=== PATIENT | male | born 1990 | race Two or more races ===

== ENCOUNTER 2025-05-15 12:34 | Emergency (ER) | payer MEDICAID, SELFPAY ==
[2025-05-15 12:56] VITALS: BP 146/103; PULSE 74; RESP 20; TEMP 36.4; O2SAT 99; BMI 30.7
--- NOTE | 2025-05-15 13:06 | XR_ITS ---
Study: Abdomen pelvis CT. Indication: Lower abdominal pain for 3 days. TECHNIQUE: 3 mm slice thickness axial with 60 mL of Isovue-300. 3 mm sagittal and coronal reformats. Radiation dose 583 mGy centimeters with dose reduction technique. 1766 images at 15 May 2025. FINDINGS: The patient was imaged from the base of the heart to the subtrochanteric region. The heart, lung bases and pleural spaces are normal. The gallbladder, kidneys, ureters and urinary bladder are free from calculi. There is no hydronephrosis, ascites or free abdominal air. Parenchyma of the liver, pancreas, spleen, right kidney, adrenal glands and periaortic lymph node region is normal. The left kidney is remarkable for a 3.2 cm diameter exophytic focus of soft tissue with a cortical medullary underlay minute of cystic characteristic extending from the inferolateral aspect of the kidney. The contrast infusion was not concentrated and rapid enough to demonstrate highlighting of this lesion. The stomach, duodenum, small bowel, appendix and colon are normal. The urinary bladder is free from masses. The prostate is enlarged to 5.5 x 3.4 cm transaxial by 4.2 cm cephalocaudad. It there is no definite pelvic sidewall lymphadenopathy. Vertebral alignment is normal. There is no fracture or focal lesion. The aorta and inferior vena cava are normal in caliber. There is no aortic plaque burden. IMPRESSION: 1. Prostate enlargement. 2. Left renal mass with combined solid and cystic characteristics. This is worrisome for a renal cell carcinoma and should be further evaluated with ultrasound or MRI.
--- NOTE | 2025-05-15 13:07 | EDNOTE_ITS ---
ED Abdominal Pain RME/HPI General Chief Complaint: Abdominal Pain Stated complaint: LOWER ABD PAIN WITH NAUSEA, VOMITING X2 Time seen by provider: 05/15/25 13:05 Arrival date/time: 05/15/25 12:34 RME / HPI RME / HPI narrative: See [facility] for Dr. Nuñez's HPI documentation. Related Data Previous Rx's ?Medication ?Instructions ?Recorded ibuprofen 800 mg tablet 800 mg PO TID PRN pain #30 t abs 11/13/23 acetaminophen 300 mg-codeine 30 mg 2 tab PO Q8H PRN pa in #20 tabs 05/15/25 tablet ondansetron 4 mg disintegrating 4 mg PO TID PRN nausea and 05/15/25 tablet vomiting 30 days #10 tabs Allergies Allergy/AdvReac Type Severity Reaction Status Date / Time No Known Allergies Allergy Verified 05/15/25 12:36 Review of Systems Review of Systems Systems Reviewed: All systems reviewed, normal except as documented Past Medical History Past Medical History CARDIAC: Negative Cardiac Disorders or Congestive Heart Failure RESPIRATORY: Negative Chronic Obstructive Pulmonary Disease (COPD) or Asthma GENITOURINARY: Negative Renal Disease ENDOCRINE: Negative Diabetes Mellitus Type 1 or Diabetes Mellitus Type 2 HEMATOLOGIC: Negative Sickle Cell Disease Social History SMOKING STATUS: Never smoker ED Exam Narrative Physical exam: See [facility] for Dr. Nuñez's physical exam documentation. Course Quality Measures none Orders Category Date Time Status CT Screening NOW Care 05/15/25 13:06 Active Saline [Insert IV] NOW Care 05/15/25 13:[address] abdomen pelvis w con Stat Exams 05/15/25 13:06 Completed Alcohol, Blood Medical Stat Lab 05/15/25 13:16 Completed Amylase Stat Lab 05/15/25 13:16 Completed Bilirubin,Direct Stat Lab 05/15/25 13:16 Completed CBC Stat Lab 05/15/25 13:16 Completed CMP [Comprehensive Metabolic Panel] Stat Lab 05/15/25 13:16 Completed Drug Screen,Urine Stat Lab 05/15/25 14:17 Completed Lipase Stat Lab 05/15/25 13:16 Completed Magnesium Stat Lab 05/15/25 13:16 Completed UA, C/S IF [Urinalysis, C/S if Indicated] Stat Lab 05/15/25 14:17 Completed HYDROmorphone INJ [Dilaudid Inj] Med 05/15/25 13:06 Discontinued 2 mg IVP X1 ONE Ketorolac Inj [Toradol Inj] Med 05/15/25 13:06 Discontinued 30 mg IVP X1 ONE Ondansetron Inj [Zofran Inj] Med 05/15/25 13:06 Discontinued 4 mg IVP X1 ONE Sodium Chloride 0.9% 1000 ml [Ns] 1,000 ml Med 05/15/25 13:06 Discontinued IV 999 mls/hr Sodium Chloride 0.9% 1000 ml [Ns] 1,000 ml Med 05/15/25 15:03 Discontinued IV 999 mls/hr Vital Signs Vital signs: Vital Signs Temperature 97.6 F 05/15/25 12:56 Pulse Rate 74 05/15/25 12:56 Respiratory Rate 20 05/15/25 12:56 Blood Pressure 146/103 H 05/15/25 12:56 Pulse Oximetry (%) 99 05/15/25 12:56 Oxygen Delivery Method Room Air 05/15/25 12:56 Pulse ox is 99% on room air which is adequate. Abdominal Pain MDM MDM Narrative MDM Narrative:: This section includes all my notes and documentations, including HPI, PE, and ED course. Mickey Nuñez MD HPI: 35-year-old male here with severe lower abdominal pain beginning yesterday. ROS: All negative except as documented in HPI. Physical Exam: General: Alert and oriented. No acute distress when remaining still. Eyes: Conjunctivae and lids clear. ENT: No nasal congestion. Neck: Supple. Heart: RRR. Lungs: No respiratory distress. Good air movement. No rhonchi, wheezing, rales. Abdomen: Soft and nontender. Normal bowel sounds. No distension. No rebound or guarding. Back: No CVA tenderness. Skin: Warm and dry. Neuro: Alert and oriented X3. I reviewed all diagnostic test results: My review of the abdomen/pelvis CT report is: Prostate enlargement, left renal mass. Blood tests and urine tests: CBC and CMP are unremarkable, lipase 80, amylase 124. UA positive for 3+ blood, 77 RBC. UDS positive for opiates. At this point, diagnoses include: Lower abdominal pain Left kidney mass Enlarged prostate Hematuria Treatment here included: Zofran 4 mg IV Dilaudid 2mg IV Toradol 30 mg IV IV fluids Significant improvement after pain medications. Recommended following up with PCP in 2 days. Based on my best medical judgment, made decision no further evaluation or treatment indicated at this time. Patient understands and agrees to the discharge instructions customized and printed, see below. Instrucciones de marisol del Dr. Nuñez impresas para usted: 1. Tras rosi evaluaci?n exhaustiva, no hay ninguna emergencia. Por ejemplo, apendicitis que requiera cirug?a urgente. 2. 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 [place] Tylenol con code?na para el dolor intenso. 4. Para rosi buena hidrataci?n, aumente la ingesta de l?quidos por v?a oral y mantenga la orina ariana. Si est? oscura o amarilla, aumente la ingesta de l?quidos. [place] Zofran para las n?useas y los v?mitos. 5. Para determinar las causas y los tratamientos de juhi afecciones, debe consultar con un m?dico particular fuera de la barak de emergencias el 05/17/2025. Solicite revisar todos los resultados de las pruebas y los informes radiol?gicos oficiales para asegurarse de recibir todo el seguimiento y la monitorizaci?n necesarios. Solicite ayuda para obtener m?s atenci?n e investigaciones, incluyendo derivaciones a especialistas, maite ur?logo, gastroenter?logo y nefr?logo (especialista en ri?ones). 6. Busque atenci?n m?dica inmediata si juhi s?ntomas empeoran o si tiene alguna inquietud. Discharge Instructions from Dr. Nuñez printed for you: 1. After extensive evaluation, there is no emergency. Such as appendicitis needing urgent surgery. 2. But you have significant conditions, including: Left kidney mass Enlarged prostate Hematuria (blood in your urine) 3. Tylenol with codeine for severe pain. 4. For good hydration, increase oral fluid and maintain clear urine. If dark or yellow, increase oral fluid. Zofran for nausea/vomiting. 5. To find the causes and treatments of your conditions, you need to see a private doctor outside the ER on 05/17/2025. Ask to review all test results and official radiology reports, to make sure you receive all necessary follow-ups and monitoring. Ask for help with more care and investigation, including referrals to see specialists, such Urologist and Gold Letterer and Cloth Desizing Range Operator Chief (kidney specialist). 6. Seek immediate medical care with worsening or with any concerns. Mickey Nuñez MD Patient data External records reviewed:: [facility] previous records Clinical information provided by:: patient Social determinants that could affect healthcare access:: none Patient has the following chronic illnesses:: No chronic medical hx reported How is presenting disease/condition affected by chronic disease/condition?: no chronic disease Evaluation data The following diagnostics were reviewed and interpreted by me:: lab results and radiology exam(s) Lab and/or radiology exams considered but not ordered:: None Interpretation Summary: I reviewed all diagnostic test results: My review of the abdomen/pelvis CT report is: Prostate enlargement, left renal mass. Blood tests and urine tests: CBC and CMP are unremarkable, lipase 80, amylase 12 4. UA positive for 3+ blood, 77 RBC. UDS positive for opiates. Medications / Prescriptions Medications or Prescriptions considered but not ordered:: None Medication administrations:: Medication Administration History Discontinued Medications Hydromorphone HCl (Hydromorphone Inj 2 Mg/Ml Vial) 2 mg IVP X1 ONE Stop: 05/15/25 13:07 Last Admin: 05/15/25 13:29 Dose: 2 mg Documented By: SM Sodium Chloride (Ns) 1,000 mls @ 999 mls/hr IV .Q1H1M ONE Stop: 05/15/25 14:06 Last Infusion: 05/15/25 14:38 Dose: Infused Documented By: Admin: 05/15/25 13:30 Dose: 999 mls/hr Documented By: FELIPE Sodium Chloride (Ns) 1,000 mls @ 999 mls/hr IV .Q1H1M ONE Stop: 05/15/25 16:03 Last Infusion: 05/15/25 16:54 Dose: Infused Documented By: Admin: 05/15/25 15:42 Dose: 999 mls/hr Documented By: FELIPE Ketorolac Tromethamine (Ketorolac Inj 30 Mg/Ml Vial) 30 mg IVP X1 ONE Stop: 05/15/25 13:07 Last Admin: 05/15/25 13:29 Dose: 30 mg Documented By: FELIPE Ondansetron HCl (Ondansetron Inj 2 Mg/Ml Inj 2 Ml) 4 mg IVP X1 ONE; Protocol Stop: 05/15/25 13:07 Last Admin: 05/15/25 13:28 Dose: 4 mg Documented By: FELIPE Treatment here included: Zofran 4 mg IV Dilaudid 2mg IV Toradol 30 mg IV IV fluids Consultations Consultation(s) initiated? (list below): No Diagnosis Differential diagnosis abdominal pain: abdominal pain, calculus of kidney, constipation, gastroenteritis and pancreatitis Most likely diagnosis given after review of the tests above:: At this point, diagnoses include: Lower abdominal pain Left kidney mass Enlarged prostate Hematuria Admission Indicated Admission indicated?: not indicated Explain why admission is indicated or not indicated:: With significant improvement and no condition needing emergent intervention, there was no indication for admission. Admission Request Was there a request for admission?: No Disposition Plan Disposition Plan: Discharge Discharge Attestation Discharge Attestation: The patient and all family members were given an opportunity to ask questions and understood the discharge instructions. Discharge instructions specifically effects, indications for sooner follow up or return to the emergency department, and the expected course of current diagnosis. Patient condition: Stable Discharge Plan Plan Patient Disposition: HOME (Self Care) Prescriptions/Referrals Prescriptions/Med Rec: New acetaminophen-codeine 300-30 mg tablet 2 tab PO Q8H MDD 6 PRN (Reason: pain) Qty: 20 0RF ondansetron 4 mg tablet,disintegrating 4 mg PO TID PRN (Reason: nausea and vomiting) 30 Days Qty: 10 0RF No Action ibuprofen 800 mg tablet 800 mg PO TID PRN (Reason: pain) Qty: 30 0RF Referrals: No Primary/Family,Physician [Primary Care Provider] - In 1 week Problem List Clinical Impression: Lower abdominal pain, Left kidney mass, Enlarged prostate, Hematuria Patient/Caregiver Discharge Instructions Discharge Activity: activity as tolerated Education Materials: ED BPH (Enlarged Prostate), ED Hematuria, ED Tumor, Uncertain Cause, ED Unknown Causes of Abdominal ... Additional Instructions: Instrucciones de marisol del Dr. Nuñez impresas para usted: 1. Tras rosi evaluaci?n exhaustiva, no hay ninguna emergencia. Por ejemplo, apendicitis que requiera cirug?a urgente. 2. 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 [place] Tylenol con code?na para el dolor intenso. 4. Para rosi buena hidrataci?n, aumente la ingesta de l?quidos por v?a oral y mantenga la orina ariana. Si est? oscura o amarilla, aumente la ingesta de l?quidos. [place] Zofran para las n?useas y los v?mitos. 5. Para determinar las causas y los tratamientos de juhi afecciones, debe consultar con un m?dico particular fuera de la barak de emergencias el 05/17/2025. Solicite revisar todos los resultados de las pruebas y los informes radiol?gicos oficiales para asegurarse de recibir todo el seguimiento y la monitorizaci?n necesarios. Solicite ayuda para obtener m?s atenci?n e investigaciones, incluyendo derivaciones a especialistas, maite ur?logo, gastroenter?logo y nefr?logo (especialista en ri?ones). 6. Busque atenci?n m?dica inmediata si juhi s?ntomas empeoran o si tiene alguna inquietud. Discharge Instructions from Dr. Nuñez printed for you: 1. After extensive evaluation, there is no emergency. Such as appendicitis needing urgent surgery. 2. But you have significant conditions, including: Left kidney mass Enlarged prostate Hematuria (blood in your urine) 3. Tylenol with codeine for severe pain. 4. For good hydration, increase oral fluid and maintain clear urine. If dark or yellow, increase oral fluid. Zofran for nausea/vomiting. 5. To find the causes and treatments of your conditions, you need to see a private doctor outside the ER on 05/17/2025. Ask to review all test results and official radiology reports, to make sure you receive all necessary follow-ups and monitoring. Ask for help with more care and investigation, including referrals to see specialists, such Urologist and Gold Letterer and Cloth Desizing Range Operator Chief (kidney specialist). 6. Seek immediate medical care with worsening or with any concerns. Print Language: Cypriot Stand Alone Forms: Diann Award Info., Patient Portal Info Letter
--- NOTE | 2025-05-15 13:19 | PC.NURSE ---
PATIENT BROUGHT TO ROOM WITH COMPLAINT OF LOWER ABDOMINAL PAIN SINCE LAST NIGHT, DENIES N/V. PATIENT DENIES ANY OTHER SYMPTOMS AT TIME OF ASSESSMENT. DR. WATKINS IN ROOM PLACING ORDERS.
[2025-05-15] MEDS: ONDANSETRON INJ 2 MG/ML INJ 2 ML 4 MG IVP (13:28)
[2025-05-15] MEDS: HYDROmorphone INJ 2 MG/ML VIAL IVP (13:29)
[2025-05-15] MEDS: KETOROLAC INJ 30 MG/ML VIAL IVP (13:29)
[2025-05-15] MEDS: SODIUM CHLORIDE 0.9% 1000 ML 1,000 ML 999 ML IV ×2 (13:30→15:42)
[2025-05-15 13:46] LABS: Basophils # (Auto) 0.1 Thou/mm3 (0.0-0.2); Basophils % (Auto) 1 % (0-2.5); Eosinophils # (Auto) 0.0 Thou/mm3 (0.0-0.5); Eosinophils % (Auto) 0 % (0-10); Hematocrit 42.7 % (41.0-53.0); Hemoglobin 14.3 g/dL (13.5-16.0); Immature Granulocytes Auto 0.07 Thou/mm3 (0.00-0.00); Lymphocytes # (Auto) 1.5 Thou/mm3 (1.0-4.8); Lymphocytes % (Auto) 14 % (10-50); Mean Corpuscular HGB Conc 33.5 g/dl (31.0-37.0); Mean Corpuscular Hemoglobin 27.4 pg (25.0-35.0); Mean Corpuscular Volume 82 fL (80-100); Monocytes # (Auto) 0.8 Thou/mm3 (0.0-0.8); Monocytes % (Auto) 7 % (0-12); Neutrophils # (Auto) 8.4 Thou/mm3 (1.8-7.7); Neutrophils % (Auto) 77 % (37-80); Nucleated Red Blood Cell # 0.00 Thou/mm3 (0.00-0.00); Nucleated Red Blood Cell % 0 /100 WBC (0); Platelet Count 266 Thou/mm3 (140-440); RDW Standard Deviation 36.9 fL (35.1-43.9); Red Blood Count 5.22 Miln/mm3 (4.50-5.90); White Blood Count 10.9 Thou/mm3 (3.8-10.6)
[2025-05-15 14:05] LABS: Alanine Aminotransferase 35 U/L (10-49); Albumin, Serum 4.8 gm/dL (3.5-5.0); Albumin/Globulin Ratio 1.7 (1.2-2.2); Alcohol, Blood Medical < 3.0 mg/dL (0-10.0); Alkaline Phosphatase 75 U/L (46-116); Amylase 124 U/L (30-118); Anion Gap 13 (7-16); Aspartate Amino Transferase 29 U/L (0-34); BUN/Creatinine Ratio 14 Ratio (12-20); Bilirubin,Direct 0.2 mg/dL (0.0-0.3); Bilirubin,Total 0.6 mg/dL (0.3-1.2); Blood Urea Nitrogen 14 mg/dL (9-23); Calcium 9.3 mg/dL (8.3-10.6); Calcium (Corrected) 9.3 mg/dL (8.5-10.1); Carbon Dioxide 23.1 mMol/L (20.0-31.0); Chloride 103 mMol/L (98-107); Creatinine (Component) 1.0 mg/dL (0.6-1.3); Estimated Creatinine Clearance 121.8 mL/min (>60); Globulin 2.9 gm/dL (2.3-3.5); Glucose 97 mg/dL (74-106); Lipase 80 U/L (12-53); Magnesium 1.7 mg/dL (1.6-2.6); Osmolality,Calculated 278 (275-295); Potassium 4.0 mMol/L (3.4-5.1); Sodium 139 mMol/L (136-145); Total Protein 7.7 gm/dL (5.7-8.2); eGFR > 60 See Note
[2025-05-15 14:14] VITALS: BP 144/96; PULSE 67; RESP 18; TEMP 36.4; O2SAT 95
[2025-05-15 14:36] LABS: Collection Type, Urine Clean Catch; Squamous Epithelial Cell,Urine 0 /hpf (0-5)
[2025-05-15 14:46] LABS: Bilirubin,Urine Negative (Negative); Blood,Urine 3+ (Negative); Clarity,Urine Turbid (Clear/Hazy); Color,Urine Lt-Yellow (Lt Yel-Yel); Culture Indicated,Urine Not Indicated; Glucose, Urine Negative (Negative); Ketones,Urine Negative (Negative); Leukocyte Esterase,Urine Negative (Negative); Nitrite,Urine Negative (Negative); PH,Urine 8.5 (5.0-7.0); Protein,Urine 1+ (Neg - Trace); RBC,Urine 77 /hpf (0-3); Specific Gravity,Urine 1.024 (1.001-1.035); Urobilinogen,Urine Negative mg/dL (0.0-1.0); WBC,Urine < 1 /hpf (0-5)
[2025-05-15 15:00] LABS: Amphetamine/Methamp Scrn,U Negative (Negative); Barbiturate Screen,Urine Negative (Negative); Benzodiazepines Screen,Urine Negative (Negative); Benzoylecgonine Screen, Ur Negative (Negative); Fentanyl Screen,Urine Negative (Negative); Opiate Screen,Urine Positive (Negative); THC Screen,Urine Negative (Negative)
[2025-05-15 16:10] VITALS: BP 132/93; PULSE 75; RESP 18; O2SAT 95
== END 2025-05-15 17:30 | disposition home or self-care (01) ==
PROVIDERS: Emergency Provider Emergency Medicine
DX: N40.0 Benign prostatic hyperplasia without lower urinary tract symptoms (principal); N28.89 Other specified disorders of kidney and ureter
CPT/HCPCS: 36415; 74177; 80053; 80307; 80320; 81001; 82150; 82248; 83690; 83735; 85025; 96361; 96374; 96375; 99284; A4649; J1171; J1885; J2405; J7030; Q9967; G0480